=== PATIENT | male | born 1955 | race Hispanic/Latino ===

== ENCOUNTER 2018-11-21 13:52 | Inpatient (IN) | payer BC ==
[2018-11-21 19:28] VITALS: BMI 28.8
[2018-11-21] MEDS: Insulin Lispro (humaLOG) 100 Units/ml Inj SC SCH (21:40)
[2018-11-22 06:48] LABS: HEMOGLOBIN 13.4 g/dL (12.0-18.0); MEAN CELL VOLUME 83.6 fl (80.0-94.0); MEAN CORPUSCULAR HEMOGLOBIN 28.3 pg (27.0-31.0); MEAN CORPUSCULAR HGB CONC 33.9 g/dL (33.0-37.0); RBC 4.73 Mil/uL (4.40-5.90); RED CELL DISTRIBUTION WIDTH 12.9 % (11.5-14.5); WHITE BLOOD COUNT 7.3 K/uL (4.8-10.8)
[2018-11-22 06:56] LABS: BLOOD UREA NITROGEN 16 mg/dl (9-20); CALCIUM 8.8 mg/dL (8.4-10.2); GFR NON-AFRICAN AMERICAN > 60
[2018-11-22] MEDS: Insulin Lispro (humaLOG) 100 Units/ml Inj SC SCH ×4 (07:02→22:13)
[2018-11-22] MEDS: Pantoprazole 40 mg EC Tab PO SCH (09:06)
[2018-11-22] MEDS: Enoxaparin 40 mg Syringe SC SCH (12:01)
--- NOTE | 2018-11-22 12:19 | PCM.PSYTMC ---
Acute Rehab Team Conference - - Vital Signs: Vital Signs (Last 8 Hours): Vital Signs 11/22/18 11/22/18 11/22/18 08:40 09:06 09:23 Temperature 97.7 F Pulse Rate 72 72 77 Respiratory 20 Rate Blood Pressure 127/75 127/75 O2 Sat by Pulse 97 99 Oximetry 11/22/18 10:43 Temperature 97.7 F Pulse Rate 72 Respiratory 20 Rate Blood Pressure 127/75 O2 Sat by Pulse Oximetry Pain: 0 - Precautions: Precautions: Fall Prevention - Medications/Other Issues: Comment: -visual field loss. -disoriented x3. -Bed and seatbelt alarm - Consults: Comment: -Dr. Hedrick - Skin: Incision Site: n/a - Toileting: Toileting: Minimal Assistance - Bladder Management: Bladder Pattern: Normal Voiding Method: Toilet, Urinal Bladder Management: Minimal Assistance - Transfers: Transfers: Contact Guard - ADL's: ADL's: Moderate Assistance - Pain Management: Other Intervention:: n/a - Patient/Family Teaching: Other Intervention:: -Teach patient safety awareness and educate family about diagnosis and medication management. - Goals/Time Frame: Comment: Patient will stay safe and informed of diagnosis and medication before discharge or until next team conference. - Provider: Registered Nurse:: Katty Strauss Speech Therapy - Consult Information Patient on Program: Yes Medical Diagnosis: CVA Treatment Diagnosis: Mod-Severe Cognitive Communication Impairment - Assessment Problem Solving Impairment: Severe Memory Impairment: Severe - Plan Assessment: Pt presents with a mod-severe cognitive communication impairment with deficits in the areas of orientation, immediate and delayed recall, problem solving, safety awareness, and sustained attention. Suspected visual deficits noted which impacted performance at times - recommend follow up with OT re: visual deficits. Pt would benefit from skilled ST services for improved cognition. Plan: Continue Speech/Language Therapy Frequency: 3-5 times per week Duration: 1 week Goals/Timeframe: Please refer to IE dated 11/22/18 for complete goals/POC Recommendations: ST 3-5x per week - Provider Therapist: Taylor Manrique License Number: [id number] Nutrition - Current Diet Current Diet/Supplement/Feedings: Moderate consistent CHO 2 gram Na diet - Appetite Percent Meal Consumed: 50-74% - Assessment/Goals/Time Frame Assessments/Goals/Time Frame: To follow as per nutrition protocol - Provider Provider: Krystyna Arteaga Case Management - Psychosocial Assessment Support Systems: Indy Boland ([facility])- [phone] Psychological Interventions/Needs: Patient is alert with intermittent confusion and forgetfulness Discharge Concerns: Patient will likely require 24 hour supervision upon discharge 2/2 cognitive deficits. Patient/Family Meeting: CM met with patient and rehab team and discussion held via certified [place]ian speaking health editor Arleth Escobar. Intervention/Goal/Outcome: 1. Goal: Supervision overall? 2. Plan: Home with 24 hour supervision vs ROBBY pending progress and family support. 3. DME needs. 4. continued emotional support. 5. f/u appts. 6. continued stay auth, LAD: 11/27. 7. patient to be reteamed next week for most appropriate discharge date and plan. - Discharge Plan Discharge Plan: Home with services - Provider Provider: Liu Langston License Number: [id number] Rehabilitation Plan - Treatment Plan Treatment Plan: Physical Therapy, Occupational Therapy, Speech, Dietary, Patient/Family Education - Recommendation Recommendation: Physical Therapy, Occupational Therapy, Speech, Dietary, Patient/Family Education - Discharge Plan Discharge to: Home
--- NOTE | 2018-11-22 16:58 | PCM.OPOC ---
Physiatry Overall Plan of Care - Overall Plan of Care Estimated Length of Stay in Weeks: 3 Rehab Impairment: Mobility, Gait, Cognition, Speech, Balance, Coordination Etiologic Diagnosis: Cerebrovascular Accident Rehab/Medical Prognosis: Fair - Anticipated Interventions Physical Therapy:: Yes (1 to 1.5 hours a day5 x a week for 3 weeks) Occupational Therapy:: Yes (1 hour a day5x a week for 3 weeks) Speech Therapy:: Yes (1 hour a day 5xaweek for 3 weeks) Recreational Therapy:: Yes - Therapy Goals Bed Mobility: Independent Ambulation: Supervision Functional Positional Changes:: Independent Other Therapy Goals:: IMPAIREMNENT CODE 01.2 - Functional Outcomes Functional Outcomes: FAIR. FUNCTIONAL STATUS> patient used to independent in all activities lives with spouse, NOW needs assistance in all phases of ADLS, TRANSFERS and GAIT - Discharge Plan Identification of Barriers to Discharge: Cognition Discharge Destination: Home
--- NOTE | 2018-11-22 17:03 | CP.PCM.CON ---
History of Present Illness - History of Present Illness History of Present Illness: 63 year old male admitted to acute rehab with diagnosis of CVA, status post dizziness and unsteady gait. PMH of HTN, DM Review of Systems - Musculoskeletal Musculoskeletal: Abnormal Gait, Muscle Weakness - Neurological Neurological: Abnormal Gait, Lack of Coordination Past Patient History - Past Medical History & Family History Past Medical History?: Yes - Past Social History Smoking Status: Light Smoker < 10 Cigarettes Daily - CARDIAC Hx Hypertension: Yes - PULMONARY Hx Respiratory Disorders: No - NEUROLOGICAL HX Cerebrovascular Accident: Yes (11/17/18) - HEENT Hx HEENT Problems: Yes Other/Comment: Impaired peripheral vision - RENAL Hx Chronic Kidney Disease: No - ENDOCRINE/METABOLIC Hx Diabetes Mellitus Type 2: Yes - HEMATOLOGICAL/ONCOLOGICAL Hx Blood Disorders: No Hx AIDS: No Hx Human Immunodeficiency Virus (HIV): No - INTEGUMENTARY Hx Dermatological Problems: No - MUSCULOSKELETAL/RHEUMATOLOGICAL Hx Falls: No Hx Unsteady Gait: Yes - GASTROINTESTINAL Hx Gastrointestinal Disorders: No - GENITOURINARY/GYNECOLOGICAL Hx Genitourinary Disorders: No - PSYCHIATRIC Hx Psychophysiologic Disorder: No Hx Substance Use: No - SURGICAL HISTORY Hx Surgeries: No - ANESTHESIA Hx Anesthesia: No Hx Anesthesia Reactions: No Meds Allergies/Adverse Reactions: Allergies Allergy/AdvReac Type Severity Reaction Status Date / Time No Known Allergies Allergy Verified 11/21/18 14:34 - Medications Medications: Current Medications Aspirin (Aspirin Chewable) 81 mg PO DAILY [facility] Last Admin: 11/22/18 09:06 Dose: 81 mg Atorvastatin Calcium (Lipitor) 40 mg PO HS [facility] Last Admin: 11/21/18 21:39 Dose: 40 mg Enoxaparin Sodium (Lovenox) 40 mg SC DAILY [facility]; Protocol Last Admin: 11/22/18 12:01 Dose: 40 mg Folic Acid (Folic Acid) 1 mg PO DAILY [facility] Last Admin: 11/22/18 09:06 Dose: 1 mg Insulin Human Lispro (Humalog) 0 units SC [facility]; Protocol Last Admin: 11/22/18 16:35 Dose: 2 unit Lisinopril (Zestril) 10 mg PO DAILY [facility] Last Admin: 11/22/18 09:06 Dose: 10 mg Pantoprazole Sodium (Protonix Ec Tab) 40 mg PO DAILY [facility] Last Admin: 11/22/18 09:06 Dose: 40 mg Thiamine HCl (Vitamin B1 Tab) 100 mg PO DAILY [facility] Last Admin: 11/22/18 09:06 Dose: 100 mg Physical Exam - Constitutional Appears: Well - Head Exam Head Exam: ATRAUMATIC, NORMAL INSPECTION, NORMOCEPHALIC - Eye Exam Eye Exam: EOMI, Normal appearance Pupil Exam: NORMAL ACCOMODATION, PERRL - ENT Exam ENT Exam: Mucous Membranes Moist, Normal Exam Additional comments: problems with neglect and vision - Neck Exam Neck exam: Positive for: Normal Inspection - Respiratory Exam Respiratory Exam: Clear to Auscultation Bilateral, NORMAL BREATHING PATTERN - Cardiovascular Exam Cardiovascular Exam: REGULAR RHYTHM - GI/Abdominal Exam GI & Abdominal Exam: Normal Bowel Sounds - Rectal Exam Rectal Exam: NORMAL INSPECTION - Exam External exam: NORMAL EXTERNAL EXAM - Extremities Exam Extremities exam: Positive for: normal inspection Additional comments: right side weaker than left side - Back Exam Back exam: NORMAL INSPECTION - Neurological Exam Neurological exam: Alert - Psychiatric Exam Psychiatric exam: Normal Affect - Skin Skin Exam: Normal Color Results - Vital Signs Recent Vital Signs: Last Vital Signs Temp 97.7 F 11/22/18 10:43 Pulse 72 11/22/18 10:43 Resp 20 11/22/18 10:43 BP 127/75 11/22/18 10:43 Pulse Ox 99 11/22/18 09:23 - Labs Result Diagrams: 11/22/18 05:25 11/22/18 05:25 Labs: Laboratory Results - last 24 hr 11/21/18 11/22/18 11/22/18 20:51 05:25 05:25 WBC 7.3 RBC 4.73 Hgb 13.4 Hct 39.5 MCV 83.6 MCH 28.3 MCHC 33.9 RDW 12.9 Plt Count 162 Sodium 136 Potassium 4.1 Chloride 103 Carbon Dioxide 25 Anion Gap 12 BUN 16 Creatinine 0.7 L Est GFR ( Amer) > 60 Est GFR (Non-Af Amer) > 60 POC Glucose (mg/dL) 178 H Random Glucose 224 H Calcium 8.8 11/22/18 11/22/18 11/22/18 05:31 11:43 15:49 WBC RBC Hgb Hct MCV MCH MCHC RDW Plt Count Sodium Potassium Chloride Carbon Dioxide Anion Gap BUN Creatinine Est GFR ( Amer) Est GFR (Non-Af Amer) POC Glucose (mg/dL) 160 H 263 H 205 H Random Glucose Calcium Assessment & Plan (1) CVA (cerebral vascular accident) Assessment and Plan: also history of DM< HTN, plan for physical, occuptional , rec and speech therapy. IMpairment code of 01.2 and 163.9 FUNCTIONAL STATUS patient used to be independent in all activities, lives with spouse but now needs asisstance in all Adls, transfers and gait . Overall plan written for patient Status: Acute
[2018-11-23] MEDS: Insulin Lispro (humaLOG) 100 Units/ml Inj SC SCH ×4 (08:28→21:22)
[2018-11-23] MEDS: Pantoprazole 40 mg EC Tab PO SCH (08:29)
[2018-11-23] MEDS: Enoxaparin 40 mg Syringe SC SCH (08:30)
[2018-11-24] MEDS: Insulin Lispro (humaLOG) 100 Units/ml Inj SC SCH ×4 (07:25→22:10)
[2018-11-24] MEDS: Pantoprazole 40 mg EC Tab PO SCH (08:13)
[2018-11-24] MEDS: Enoxaparin 40 mg Syringe SC SCH (08:14)
--- NOTE | 2018-11-24 12:30 | CP.PCM.PN ---
Subjective - Date & Time of Evaluation Date of Evaluation: 11/24/18 Time of Evaluation: 10:30 - Subjective Subjective: no acute neck or back pain, alert and friendly Objective - Vital Signs/Intake and Output Vital Signs (last 24 hours): Temp Pulse Resp BP Pulse Ox 98.1 F 70 19 145/69 97 11/24/18 08:07 11/24/18 08:13 11/24/18 08:07 11/24/18 08:13 11/24/18 08:07 - Medications Medications: Current Medications Aspirin (Aspirin Chewable) 81 mg PO DAILY [facility] Last Admin: 11/24/18 08:12 Dose: 81 mg Atorvastatin Calcium (Lipitor) 40 mg PO HS [facility] Last Admin: 11/23/18 21:15 Dose: 40 mg Enoxaparin Sodium (Lovenox) 40 mg SC DAILY [facility]; Protocol Last Admin: 11/24/18 08:14 Dose: 40 mg Folic Acid (Folic Acid) 1 mg PO DAILY [facility] Last Admin: 11/24/18 08:13 Dose: 1 mg Insulin Human Lispro (Humalog) 0 units SC [facility]; Protocol Last Admin: 11/24/18 11:58 Dose: 3 unit Lisinopril (Zestril) 10 mg PO DAILY [facility] Last Admin: 11/24/18 08:13 Dose: 10 mg Pantoprazole Sodium (Protonix Ec Tab) 40 mg PO DAILY [facility] Last Admin: 11/24/18 08:13 Dose: 40 mg Thiamine HCl (Vitamin B1 Tab) 100 mg PO DAILY [facility] Last Admin: 11/24/18 08:13 Dose: 100 mg - Labs Labs: 11/22/18 05:25 11/22/18 05:25 - Constitutional Appears: Well - Head Exam Head Exam: ATRAUMATIC, NORMAL INSPECTION, NORMOCEPHALIC - Eye Exam Eye Exam: EOMI, Normal appearance, PERRL Pupil Exam: NORMAL ACCOMODATION, PERRL - ENT Exam ENT Exam: Mucous Membranes Moist, Normal Exam - Neck Exam Neck Exam: Full ROM, Normal Inspection - Respiratory Exam Respiratory Exam: Clear to Ausculation Bilateral, NORMAL BREATHING PATTERN - Cardiovascular Exam Cardiovascular Exam: REGULAR RHYTHM - GI/Abdominal Exam GI & Abdominal Exam: Soft, Normal Bowel Sounds - Rectal Exam Rectal Exam: NORMAL INSPECTION - Exam External exam: NORMAL EXTERNAL EXAM - Extremities Exam Extremities Exam: Full ROM, Normal Capillary Refill, Normal Inspection - Back Exam Back Exam: NORMAL INSPECTION - Neurological Exam Neurological Exam: Alert, Awake Neuro motor strength exam: Left Upper Extremity: 3, Right Upper Extremity: 3, Left Lower Extremity: 3, Right Lower Extremity: 3 - Psychiatric Exam Psychiatric exam: Normal Affect, Normal Mood Assessment and Plan (1) CVA (cerebral vascular accident) Assessment & Plan: plan for physical, occupational, rec therapy, speech therapy for range of motion, strengthing, transfers and gait training Status: Acute
--- NOTE | 2018-11-24 12:52 | CP.PCM.PN ---
Subjective - Date & Time of Evaluation Date of Evaluation: 11/23/18 Time of Evaluation: 15:00 - Subjective Subjective: no acute neck or back pain, generalized weakness Objective - Vital Signs/Intake and Output Vital Signs (last 24 hours): Temp Pulse Resp BP Pulse Ox 98.1 F 70 19 145/69 97 11/24/18 08:07 11/24/18 08:13 11/24/18 08:07 11/24/18 08:13 11/24/18 08:07 - Medications Medications: Current Medications Aspirin (Aspirin Chewable) 81 mg PO DAILY [facility] Last Admin: 11/24/18 08:12 Dose: 81 mg Atorvastatin Calcium (Lipitor) 40 mg PO HS [facility] Last Admin: 11/23/18 21:15 Dose: 40 mg Enoxaparin Sodium (Lovenox) 40 mg SC DAILY [facility]; Protocol Last Admin: 11/24/18 08:14 Dose: 40 mg Folic Acid (Folic Acid) 1 mg PO DAILY [facility] Last Admin: 11/24/18 08:13 Dose: 1 mg Insulin Human Lispro (Humalog) 0 units SC [facility]; Protocol Last Admin: 11/24/18 11:58 Dose: 3 unit Lisinopril (Zestril) 10 mg PO DAILY [facility] Last Admin: 11/24/18 08:13 Dose: 10 mg Pantoprazole Sodium (Protonix Ec Tab) 40 mg PO DAILY [facility] Last Admin: 11/24/18 08:13 Dose: 40 mg Thiamine HCl (Vitamin B1 Tab) 100 mg PO DAILY [facility] Last Admin: 11/24/18 08:13 Dose: 100 mg - Labs Labs: 11/22/18 05:25 11/22/18 05:25 - Constitutional Appears: Well - Head Exam Head Exam: ATRAUMATIC, NORMAL INSPECTION, NORMOCEPHALIC - Eye Exam Eye Exam: EOMI, Normal appearance, PERRL Pupil Exam: NORMAL ACCOMODATION - ENT Exam ENT Exam: Mucous Membranes Moist, Normal Exam - Neck Exam Neck Exam: Full ROM, Normal Inspection - Respiratory Exam Respiratory Exam: Clear to Ausculation Bilateral, NORMAL BREATHING PATTERN - Cardiovascular Exam Cardiovascular Exam: REGULAR RHYTHM - GI/Abdominal Exam GI & Abdominal Exam: Soft, Normal Bowel Sounds - Rectal Exam Rectal Exam: NORMAL INSPECTION - Exam External exam: NORMAL EXTERNAL EXAM - Extremities Exam Extremities Exam: Full ROM, Normal Capillary Refill, Normal Inspection - Back Exam Back Exam: NORMAL INSPECTION - Neurological Exam Neurological Exam: Alert, Awake Neuro motor strength exam: Left Upper Extremity: 3, Right Upper Extremity: 3, L eft Lower Extremity: 3, Right Lower Extremity: 3 - Psychiatric Exam Psychiatric exam: Normal Affect, Normal Mood - Skin Skin Exam: Dry, Intact Assessment and Plan (1) CVA (cerebral vascular accident) Assessment & Plan: Plan for physical, occupational rec and speech therapy for range of motion, strengthening, transfers and gait training, monitor labs and skin Status: Acute
--- NOTE | 2018-11-25 00:13 | CP.PCM.HP ---
History of Present Illness - History of Present Illness History of Present Illness: CC: Acute CVA, and Hemianopsia History of Present Illness A 63yoM with H/O DM II, Essential HTN and Chronic ETOH was [place] [facility] [place] with Hemianops[place]. MRI brain showed ACute Medium Size Infarct involving the anterior medial left occipital lobe. Moderate to large MCA Distribution.Patient also has Right Hemianopia. In the Hospital course, patient went to ETOH withdrawal. Present on Admission - Present on Admission Any Indicators Present on Admission: No Review of Systems - Review of Systems All systems: reviewed and no additional remarkable complaints except Past Patient History - Past Medical History & Family History Past Medical History?: Yes - Past Social History Smoking Status: Light Smoker < 10 Cigarettes Daily Alcohol: None Drugs: Denies - CARDIAC Hx Hypertension: Yes - PULMONARY Hx Respiratory Disorders: No - NEUROLOGICAL HX Cerebrovascular Accident: Yes (11/17/18) - HEENT Hx HEENT Problems: Yes Other/Comment: Impaired peripheral vision - RENAL Hx Chronic Kidney Disease: No - ENDOCRINE/METABOLIC Hx Diabetes Mellitus Type 2: Yes - HEMATOLOGICAL/ONCOLOGICAL Hx Blood Disorders: No Hx AIDS: No Hx Human Immunodeficiency Virus (HIV): No - INTEGUMENTARY Hx Dermatological Problems: No - MUSCULOSKELETAL/RHEUMATOLOGICAL Hx Falls: No Hx Unsteady Gait: Yes - GASTROINTESTINAL Hx Gastrointestinal Disorders: No - GENITOURINARY/GYNECOLOGICAL Hx Genitourinary Disorders: No - PSYCHIATRIC Hx Psychophysiologic Disorder: No Hx Substance Use: No - SURGICAL HISTORY Hx Surgeries: No - ANESTHESIA Hx Anesthesia: No Hx Anesthesia Reactions: No Meds Allergies/Adverse Reactions: Allergies Allergy/AdvReac Type Severity Reaction Status Date / Time No Known Allergies Allergy Verified 11/21/18 14:34 Physical Exam - Constitutional Appears: No Acute Distress, Chronically Ill - Head Exam Head Exam: ATRAUMATIC, NORMAL INSPECTION, NORMOCEPHALIC - Eye Exam Eye Exam: EOMI, Normal appearance, PERRL Pupil Exam: NORMAL ACCOMODATION, PERRL - ENT Exam ENT Exam: Mucous Membranes Moist, Normal Exam - Neck Exam Neck exam: Positive for: Normal Inspection - Respiratory Exam Respiratory Exam: Clear to Auscultation Bilateral, NORMAL BREATHING PATTERN - Cardiovascular Exam Cardiovascular Exam: REGULAR RHYTHM, +S1 - GI/Abdominal Exam GI & Abdominal Exam: Normal Bowel Sounds, Soft. absent: Tenderness - Extremities Exam Extremities exam: Positive for: normal inspection - Back Exam Back exam: NORMAL INSPECTION - Neurological Exam Neurological exam: Abnormal Gait, Altered, Motor Sensory Deficit - Psychiatric Exam Psychiatric exam: Normal Affect, Normal Mood - Skin Skin Exam: Dry, Intact, Normal Color, Warm Results - Vital Signs Recent Vital Signs: Last Vital Signs Temp 98.1 F 11/24/18 08:07 Pulse 81 11/24/18 14:41 Resp 19 11/24/18 08:07 BP 145/69 11/24/18 08:13 Pulse Ox 97 11/24/18 08:07 - Labs Result Diagrams: 11/28/18 05:35 11/28/18 05:35 Labs: Laboratory Results - last 24 hr 11/24/18 11/24/18 11/24/18 05:44 11:10 16:10 POC Glucose (mg/dL) 176 H 278 H 200 H Assessment & Plan (1) CVA (cerebral vascular accident) Status: Acute Priority: High (2) Hemianopia of right eye Status: Acute Priority: High (3) Diabetes mellitus Status: Acute Priority: Medium (4) Hypertension Status: Acute Priority: Low (5) Chronic alcohol abuse Status: Acute Priority: Low - Assessment and Plan (Free Text) Plan: C/w ASA/Lipitor Metformin Thiamine/Foic Acid Accu-check with Low coverage C/w Protonix Lovenox 40mg SQ daily Will need follow up
--- NOTE | 2018-11-25 00:14 | CP.PCM.PN ---
Subjective - Date & Time of Evaluation Date of Evaluation: 11/23/18 Objective - Vital Signs/Intake and Output Vital Signs (last 24 hours): Temp Pulse Resp BP Pulse Ox 98.1 F 81 19 145/69 97 11/24/18 08:07 11/24/18 14:41 11/24/18 08:07 11/24/18 08:13 11/24/18 08:07 - Medications Medications: Current Medications Aspirin (Aspirin Chewable) 81 mg PO DAILY [facility] Last Admin: 11/24/18 08:12 Dose: 81 mg Atorvastatin Calcium (Lipitor) 40 mg PO HS [facility] Last Admin: 11/24/18 22:07 Dose: 40 mg Enoxaparin Sodium (Lovenox) 40 mg SC DAILY [facility]; Protocol Last Admin: 11/24/18 08:14 Dose: 40 mg Folic Acid (Folic Acid) 1 mg PO DAILY [facility] Last Admin: 11/24/18 08:13 Dose: 1 mg Insulin Human Lispro (Humalog) 0 units SC [facility]; Protocol Last Admin: 11/24/18 22:10 Dose: Not Given Lisinopril (Zestril) 10 mg PO DAILY [facility] Last Admin: 11/24/18 08:13 Dose: 10 mg Pantoprazole Sodium (Protonix Ec Tab) 40 mg PO DAILY [facility] Last Admin: 11/24/18 08:13 Dose: 40 mg Thiamine HCl (Vitamin B1 Tab) 100 mg PO DAILY [facility] Last Admin: 11/24/18 08:13 Dose: 100 mg - Labs Labs: 11/22/18 05:25 11/22/18 05:25
--- NOTE | 2018-11-25 00:15 | CP.PCM.PN ---
Subjective - Date & Time of Evaluation Date of Evaluation: 11/24/18 Objective - Vital Signs/Intake and Output Vital Signs (last 24 hours): Temp Pulse Resp BP Pulse Ox 98.1 F 81 19 145/69 97 11/24/18 08:07 11/24/18 14:41 11/24/18 08:07 11/24/18 08:13 11/24/18 08:07 - Medications Medications: Current Medications Aspirin (Aspirin Chewable) 81 mg PO DAILY [facility] Last Admin: 11/24/18 08:12 Dose: 81 mg Atorvastatin Calcium (Lipitor) 40 mg PO HS [facility] Last Admin: 11/24/18 22:07 Dose: 40 mg Enoxaparin Sodium (Lovenox) 40 mg SC DAILY [facility]; Protocol Last Admin: 11/24/18 08:14 Dose: 40 mg Folic Acid (Folic Acid) 1 mg PO DAILY [facility] Last Admin: 11/24/18 08:13 Dose: 1 mg Insulin Human Lispro (Humalog) 0 units SC [facility]; Protocol Last Admin: 11/24/18 22:10 Dose: Not Given Lisinopril (Zestril) 10 mg PO DAILY [facility] Last Admin: 11/24/18 08:13 Dose: 10 mg Pantoprazole Sodium (Protonix Ec Tab) 40 mg PO DAILY [facility] Last Admin: 11/24/18 08:13 Dose: 40 mg Thiamine HCl (Vitamin B1 Tab) 100 mg PO DAILY [facility] Last Admin: 11/24/18 08:13 Dose: 100 mg - Labs Labs: 11/22/18 05:25 11/22/18 05:25
[2018-11-25] MEDS: Insulin Lispro (humaLOG) 100 Units/ml Inj SC SCH ×4 (07:44→21:00)
[2018-11-25] MEDS: Enoxaparin 40 mg Syringe SC SCH (08:09)
[2018-11-25 08:10] LABS: BLOOD UREA NITROGEN 16 mg/dl (9-20); GFR NON-AFRICAN AMERICAN > 60
[2018-11-25] MEDS: Pantoprazole 40 mg EC Tab PO SCH (08:10)
[2018-11-25 08:11] LABS: HEMOGLOBIN 13.2 g/dL (12.0-18.0); MEAN CELL VOLUME 82.2 fl (80.0-94.0); MEAN CORPUSCULAR HEMOGLOBIN 28.3 pg (27.0-31.0); MEAN CORPUSCULAR HGB CONC 34.4 g/dL (33.0-37.0); RBC 4.66 Mil/uL (4.40-5.90); RED CELL DISTRIBUTION WIDTH 12.6 % (11.5-14.5)
[2018-11-26] MEDS: Insulin Lispro (humaLOG) 100 Units/ml Inj SC SCH ×4 (06:51→21:24)
[2018-11-26] MEDS: Pantoprazole 40 mg EC Tab PO SCH (08:21)
[2018-11-27] MEDS: Insulin Lispro (humaLOG) 100 Units/ml Inj SC SCH ×4 (06:54→21:27)
[2018-11-27] MEDS: Pantoprazole 40 mg EC Tab PO SCH (08:02)
[2018-11-27] MEDS: Enoxaparin 40 mg Syringe SC SCH (16:56)
[2018-11-28 06:40] LABS: HEMOGLOBIN 12.8 g/dL (12.0-18.0); MEAN CELL VOLUME 82.7 fl (80.0-94.0); MEAN CORPUSCULAR HEMOGLOBIN 28.2 pg (27.0-31.0); MEAN CORPUSCULAR HGB CONC 34.1 g/dL (33.0-37.0); RBC 4.53 Mil/uL (4.40-5.90); RED CELL DISTRIBUTION WIDTH 12.8 % (11.5-14.5); WHITE BLOOD COUNT 8.9 K/uL (4.8-10.8)
[2018-11-28 07:25] LABS: BLOOD UREA NITROGEN 20 mg/dl (9-20); CALCIUM 9.1 mg/dL (8.4-10.2); GFR NON-AFRICAN AMERICAN > 60
[2018-11-28] MEDS: Insulin Lispro (humaLOG) 100 Units/ml Inj SC SCH ×4 (07:59→22:00)
[2018-11-28] MEDS: Enoxaparin 40 mg Syringe SC SCH (08:43)
[2018-11-28] MEDS: Pantoprazole 40 mg EC Tab PO SCH (08:43)
[2018-11-28] MEDS ORDERED: Enoxaparin 40 mg Syringe SC SCH (09:00)
--- NOTE | 2018-11-28 11:55 | CP.PCM.PN ---
Subjective - Date & Time of Evaluation Date of Evaluation: 11/25/18 Objective - Vital Signs/Intake and Output Vital Signs (last 24 hours): Temp Pulse Resp BP Pulse Ox 97.7 F 63 18 145/67 98 11/28/18 07:43 11/28/18 08:43 11/28/18 07:43 11/28/18 08:43 11/28/18 07:43 - Medications Medications: Current Medications Aspirin (Aspirin Chewable) 81 mg PO DAILY [facility] Last Admin: 11/28/18 08:42 Dose: 81 mg Atorvastatin Calcium (Lipitor) 40 mg PO HS [facility] Last Admin: 11/27/18 21:26 Dose: 40 mg Enoxaparin Sodium (Lovenox) 40 mg SC DAILY [facility]; Protocol Last Admin: 11/28/18 08:43 Dose: 40 mg Folic Acid (Folic Acid) 1 mg PO DAILY [facility] Last Admin: 11/28/18 08:42 Dose: 1 mg Insulin Human Lispro (Humalog) [address] [facility]; Protocol Last Admin: 11/28/18 07:59 Dose: 1 unit Lisinopril (Zestril) 10 mg PO DAILY [facility] Last Admin: 11/28/18 08:43 Dose: 10 mg Metformin HCl (Glucophage) 500 mg PO BIDWM [facility] Last Admin: 11/28/18 08:42 Dose: 500 mg Pantoprazole Sodium (Protonix Ec Tab) 40 mg PO DAILY [facility] Last Admin: 11/28/18 08:43 Dose: 40 mg Thiamine HCl (Vitamin B1 Tab) 100 mg PO DAILY [facility] Last Admin: 11/28/18 08:43 Dose: 100 mg - Labs Labs: 11/28/18 05:35 11/28/18 05:35
--- NOTE | 2018-11-28 11:56 | CP.PCM.PN ---
Subjective - Date & Time of Evaluation Date of Evaluation: 11/26/18 Objective - Vital Signs/Intake and Output Vital Signs (last 24 hours): Temp Pulse Resp BP Pulse Ox 97.7 F 63 18 145/67 98 11/28/18 07:43 11/28/18 08:43 11/28/18 07:43 11/28/18 08:43 11/28/18 07:43 - Medications Medications: Current Medications Aspirin (Aspirin Chewable) 81 mg PO DAILY [facility] Last Admin: 11/28/18 08:42 Dose: 81 mg Atorvastatin Calcium (Lipitor) 40 mg PO HS [facility] Last Admin: 11/27/18 21:26 Dose: 40 mg Enoxaparin Sodium (Lovenox) 40 mg SC DAILY [facility]; Protocol Last Admin: 11/28/18 08:43 Dose: 40 mg Folic Acid (Folic Acid) 1 mg PO DAILY [facility] Last Admin: 11/28/18 08:42 Dose: 1 mg Insulin Human Lispro (Humalog) 0 units SC [facility]; Protocol Last Admin: 11/28/18 07:59 Dose: 1 unit Lisinopril (Zestril) 10 mg PO DAILY [facility] Last Admin: 11/28/18 08:43 Dose: 10 mg Metformin HCl (Glucophage) 500 mg PO BIDWM [facility] Last Admin: 11/28/18 08:42 Dose: 500 mg Pantoprazole Sodium (Protonix Ec Tab) 40 mg PO DAILY [facility] Last Admin: 11/28/18 08:43 Dose: 40 mg Thiamine HCl (Vitamin B1 Tab) 100 mg PO DAILY [facility] Last Admin: 11/28/18 08:43 Dose: 100 mg - Labs Labs: 11/28/18 05:35 11/28/18 05:35
--- NOTE | 2018-11-28 11:57 | CP.PCM.PN ---
Subjective - Date & Time of Evaluation Date of Evaluation: 11/27/18 Objective - Vital Signs/Intake and Output Vital Signs (last 24 hours): Temp Pulse Resp BP Pulse Ox 97.7 F 63 18 145/67 98 11/28/18 07:43 11/28/18 08:43 11/28/18 07:43 11/28/18 08:43 11/28/18 07:43 - Medications Medications: Current Medications Aspirin (Aspirin Chewable) 81 mg PO DAILY [facility] Last Admin: 11/28/18 08:42 Dose: 81 mg Atorvastatin Calcium (Lipitor) 40 mg PO HS [facility] Last Admin: 11/27/18 21:26 Dose: 40 mg Enoxaparin Sodium (Lovenox) 40 mg SC DAILY [facility]; Protocol Last Admin: 11/28/18 08:43 Dose: 40 mg Folic Acid (Folic Acid) 1 mg PO DAILY [facility] Last Admin: 11/28/18 08:42 Dose: 1 mg Insulin Human Lispro (Humalog) 0 units SC [facility]; Protocol Last Admin: 11/28/18 07:59 Dose: 1 unit Lisinopril (Zestril) 10 mg PO DAILY [facility] Last Admin: 11/28/18 08:43 Dose: 10 mg Metformin HCl (Glucophage) 500 mg PO BIDWM [facility] Last Admin: 11/28/18 08:42 Dose: 500 mg Pantoprazole Sodium (Protonix Ec Tab) 40 mg PO DAILY [facility] Last Admin: 11/28/18 08:43 Dose: 40 mg Thiamine HCl (Vitamin B1 Tab) 100 mg PO DAILY [facility] Last Admin: 11/28/18 08:43 Dose: 100 mg - Labs Labs: 11/28/18 05:35 11/28/18 05:35
--- NOTE | 2018-11-28 22:15 | CP.PCM.PN ---
Subjective - Date & Time of Evaluation Date of Evaluation: 11/28/18 Time of Evaluation: 12:00 - Subjective Subjective: no acute complaints at present Objective - Vital Signs/Intake and Output Vital Signs (last 24 hours): Temp Pulse Resp BP Pulse Ox 97.7 F 63 18 145/67 98 11/28/18 07:43 11/28/18 08:43 11/28/18 07:43 11/28/18 08:43 11/28/18 07:43 - Medications Medications: Current Medications Aspirin (Aspirin Chewable) 81 mg PO DAILY [facility] Last Admin: 11/28/18 08:42 Dose: 81 mg Atorvastatin Calcium (Lipitor) 40 mg PO HS [facility] Last Admin: 11/28/18 21:22 Dose: 40 mg Enoxaparin Sodium (Lovenox) 40 mg SC DAILY [facility]; Protocol Last Admin: 11/28/18 08:43 Dose: 40 mg Folic Acid (Folic Acid) 1 mg PO DAILY [facility] Last Admin: 11/28/18 08:42 Dose: 1 mg Insulin Human Lispro (Humalog) 0 units SC [facility]; Protocol Last Admin: 11/28/18 17:19 Dose: Not Given Lisinopril (Zestril) 10 mg PO DAILY [facility] Last Admin: 11/28/18 08:43 Dose: 10 mg Metformin HCl (Glucophage) 500 mg PO BIDWM [facility] Last Admin: 11/28/18 17:18 Dose: 500 mg Pantoprazole Sodium (Protonix Ec Tab) 40 mg PO DAILY [facility] Last Admin: 11/28/18 08:43 Dose: 40 mg Thiamine HCl (Vitamin B1 Tab) 100 mg PO DAILY [facility] Last Admin: 11/28/18 08:43 Dose: 100 mg - Labs Labs: 11/28/18 05:35 11/28/18 05:35 - Constitutional Appears: Well - Head Exam Head Exam: ATRAUMATIC, NORMAL INSPECTION, NORMOCEPHALIC - Eye Exam Eye Exam: EOMI, Normal appearance Pupil Exam: NORMAL ACCOMODATION, PERRL - ENT Exam ENT Exam: Mucous Membranes Moist, Normal Exam - Neck Exam Neck Exam: Full ROM - Respiratory Exam Respiratory Exam: Clear to Ausculation Bilateral, NORMAL BREATHING PATTERN - Cardiovascular Exam Cardiovascular Exam: REGULAR RHYTHM - GI/Abdominal Exam GI & Abdominal Exam: Soft, Normal Bowel Sounds - Rectal Exam Rectal Exam: NORMAL INSPECTION - Exam External exam: NORMAL EXTERNAL EXAM - Extremities Exam Extremities Exam: Full ROM, Normal Capillary Refill - Back Exam Back Exam: NORMAL INSPECTION - Neurological Exam Neurological Exam: Alert Neuro motor strength exam: Left Upper Extremity: 3, Right Upper Extremity: 3, Left Lower Extremity: 3, Right Lower Extremity: 3 - Psychiatric Exam Psychiatric exam: Normal Affect, Normal Mood - Skin Skin Exam: Dry, Normal Color Assessment and Plan (1) CVA (cerebral vascular accident) Assessment & Plan: plan for physical, occupational and rec therapy, for team conference Status: Acute
--- NOTE | 2018-11-29 00:04 | CP.PCM.PN ---
Subjective - Date & Time of Evaluation Date of Evaluation: 11/28/18 Objective - Vital Signs/Intake and Output Vital Signs (last 24 hours): Temp Pulse Resp BP Pulse Ox 97.7 F 63 18 145/67 98 11/28/18 07:43 11/28/18 08:43 11/28/18 07:43 11/28/18 08:43 11/28/18 07:43 - Medications Medications: Current Medications Aspirin (Aspirin Chewable) 81 mg PO DAILY [facility] Last Admin: 11/28/18 08:42 Dose: 81 mg Atorvastatin Calcium (Lipitor) 40 mg PO HS [facility] Last Admin: 11/28/18 21:22 Dose: 40 mg Enoxaparin Sodium (Lovenox) 40 mg SC DAILY [facility]; Protocol Last Admin: 11/28/18 08:43 Dose: 40 mg Folic Acid (Folic Acid) 1 mg PO DAILY [facility] Last Admin: 11/28/18 08:42 Dose: 1 mg Insulin Human Lispro (Humalog) 0 units SC [facility]; Protocol Last Admin: 11/28/18 22:00 Dose: Not Given Lisinopril (Zestril) 10 mg PO DAILY [facility] Last Admin: 11/28/18 08:43 Dose: 10 mg Metformin HCl (Glucophage) 500 mg PO BIDWM [facility] Last Admin: 11/28/18 17:18 Dose: 500 mg Pantoprazole Sodium (Protonix Ec Tab) 40 mg PO DAILY [facility] Last Admin: 11/28/18 08:43 Dose: 40 mg Thiamine HCl (Vitamin B1 Tab) 100 mg PO DAILY [facility] Last Admin: 11/28/18 08:43 Dose: 100 mg - Labs Labs: 11/28/18 05:35 11/28/18 05:35
[2018-11-29] MEDS: Insulin Lispro (humaLOG) 100 Units/ml Inj SC SCH ×4 (07:35→21:23)
[2018-11-29] MEDS: Pantoprazole 40 mg EC Tab PO SCH (08:05)
[2018-11-29] MEDS: Enoxaparin 40 mg Syringe SC SCH (08:05)
--- NOTE | 2018-11-29 12:22 | PCM.PSYTMC ---
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 Liseth Crocker - Skin: Incision Site: N/A Incision Line Treatment: skin intact - Toileting: Toileting: Contact Guard - Bladder Management: Bladder Pattern: Normal Voiding Method: Toilet, Urinal Bladder Management: Contact Guard - Transfers: Transfers: Contact Guard - ADL's: ADL's: Contact Guard - Pain Management: Other Intervention:: pt denies pain - Patient/Family Teaching: Other Intervention:: medications, DM/ DM diet , safety, cognition - Goals/Time Frame: Comment: to be able to be discharged home with family care. - Provider: Registered Nurse:: Jazlyn Jordan Physical Therapy - Bed Mobility Bed Mobility: Supervision, Verbal Cues - Transfers Wheelchair to Mat: Supervision, Verbal Cues, Contact Guard Sit to Stand: Supervision, Verbal Cues Comment: no device - Ambulation Level of Assistance: Supervision, Verbal Cues, Contact Guard Distance (ft.): 200 Assistive Devices: N/A Orthoses: n/a Comment: 200 feet, no device, level surfaces. -VCs to improve reciprocal arm swing, patient then uses BUE flexion/extension at the same time and requires tactile cues and frequent reminders to utilize reciprocal arm swing. -requires intermittent CG due to collisions with obstacles 2' to impaired vision with vision changes due to stroke (R homonymous hemionopsia as well as R superior/inferior visual field loss). -trials with recurrent cues to maintain head turns throughout gait to try and reduced collisions, improve negotiation of obstacles and maintain as best as he can in the center of the hallway - Stair Negotiation Stairs: Level of Assistance: Supervision, Verbal Cues, Contact Guard Stairs: Assistive Devices: Left Handrail, Right Handrail Comment: 1 flight 8 inch steps with R rail on ascent and L rail on descent. - step to pattern with VCs with CS/CG. -requires cues to maintain slow speed and verbal cues to know when the steps are at the bottom. -increased assistance on descent due to difficulty with vision and difficulty of visual challenges with steps - Standing Balance Static Stand: Supervision - Pain Pain (assessed during therapy session): 0 Comment: denies - Insight/Carryover Insight/Carryover: Poor - Patient/Family Education Comment: -able to demonstrate reciprocally techniques right away but has poor carry-over with techniques to improve safety. -safety, therapy schedule, therapy goals, use of head turns, mobility, POC, stroke recovery - Assessment/Plan Assessment: Mr. Boland demonstrates improving balance and safety with mobility. Patient's largest barrier is due to both cognitive deficits as well as visual changes following CVA. Due to vision loss, patient has impaired ability to negotiate safely his environment and is at high risk of collisions. Patient's impaired memory impacts his ability to safely follow and adhere to compensatory strategies to improve safety. Patient responds well to cues but requires verbal and at times tactile cues as well as frequent repetition of cues to improve safety with tasks. PT recommends home discharge with 24 hour supervision of family to ensure safety for the patient in his environment. PT recommends home care. - Goals Timeframe: 7 days Goals: -I with bed/mat mobility including rolling and supine to/from sit. -mod I with transfers without device including stand pivot and sit to/from stand. - mod I to ambulate 50 feet without device (houeshold independent). -S to ambulate 500 feet without device. -S to negotiate 2 flights of steps with single rail - Provider Physical Therapist:: Nilda Hoffman License Number:: [id number] Speech Therapy - Consult Information Patient on Program: Yes Medical Diagnosis: CVA Treatment Diagnosis: Mild-Moderate Cognitive Communication Disorder - Assessment Problem Solving Impairment: Moderate Memory Impairment: Moderate - Plan Assessment: Mr Boland presents with 1) Moderate cognitive communication impairment characterized by deficits in the areas of orientation, immediate recall, biographical recall, and basic attention. Barriers to learning include visual deficits and cognition. Plan: Continue Speech/Language Therapy Frequency: 3-5 times per week Duration: 1 week Goals/Timeframe: Please see progress note updated 11/27 for updated goals and POC Recommendations: Continue ST services to improve safety, orientation and independence with ADLs. - Provider Therapist: Taylor Manrique License Number: [id number] Recreational Therapy - Participation Participation: Participates in Individual and/or Group Sessions - Attendance Attendance: 3-5 times per week - Activities Leisure Activities: Television - Socialization Level of Socialization: Initiates/interacts freely with care givers and peer - Diversional Time Diversional Time: television - Assessment Assessment/Plan: Pt is agreeable to participate in recreation therapy sessions. Pt's mood is stable-positive and cooperative throughout all sessions. Pt is oriented to leisure tasks such as 5 second rule, modified tate card task, and attempted to demonstrate to pt spot-it matching task and tapple. Pt has participated in dominoes and recall task rules. However, pt's visual deficits and cognitive deficits are barriers to participation and require max verbal cues for visual attention to the R side and midline. Pt presents with short-term recall deficits and impaired safety awareness. Pt will continue to benefit from participating in recreation therapy sessions throughout stay on unit. Pt attended stroke education group and provided with post-stroke recovery information and nutrition information. Pt's informed as well. Problems Currently Limiting Participation: decrease leisure awareness level, impaired problem solving, visual deficits (R side inattention), disorientation Goals and Time Frame: Pt will tolerate participating in at least 30 minutes of leisure task and recall task rules requiring min verbal cues throughout session by date of discharge. - Provider Therapist: Linda Field Nutrition - Current Diet Current Diet/Supplement/Feedings: Moderate consistent CHO 2 gram Na diet - Appetite Percent Meal Consumed: 75-100% - Assessment/Goals/Time Frame Assessments/Goals/Time Frame: Pt at moderate nutritional risk. goalS: 1. Pt to consume 75-100% of meals. 2. Blood glucoses to be between 70-180 mg/dl. Follow-up due on 11/29/2018 - Provider Provider: Krystyna Arteaga Case Management - Psychosocial Assessment Support Systems: Indy Boland () - [phone] Psychological Interventions/Needs: Patient is AAO with cognitive defecits and visual impairments. Discharge Concerns: Patient lives with in an apartment with elevator access. 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 Patient/Family Meeting: CM met with patient and rehab team. Intervention/Goal/Outcome: 1. Goal: 24hr supervision 2. Plan: home with VNS and family support 3. complete POA forms with - mobile notary scheduled to assist with documents on 12/01 @ 10am 4. discuss with team what DME is needed and order accordingly 5. schedule f/u appts - Discharge Plan Discharge Plan: Home with services Home Services: [facility] - Provider Provider: Kaya Amos License Number: [id number] Rehabilitation Plan - Treatment Plan Treatment Plan: Physical Therapy, Occupational Therapy, Speech, Dietary, Patient/Family Education - Recommendation Recommendation: Physical Therapy, Occupational Therapy, Speech, Dietary, Patient/Family Education - Discharge Plan Discharge to: Home (DC 25)
--- NOTE | 2018-11-29 13:21 | CP.PCM.PN ---
Subjective - Date & Time of Evaluation Date of Evaluation: 11/25/18 Time of Evaluation: 13:00 - Subjective Subjective: no acute complaints at present Objective - Vital Signs/Intake and Output Vital Signs (last 24 hours): Temp Pulse Resp BP Pulse Ox 97.7 F 70 18 132/61 97 11/29/18 09:00 11/29/18 09:00 11/29/18 09:00 11/29/18 09:00 11/29/18 08:06 - Medications Medications: Current Medications Aspirin (Aspirin Chewable) 81 mg PO DAILY [facility] Last Admin: 11/29/18 08:05 Dose: 81 mg Atorvastatin Calcium (Lipitor) 40 mg PO HS [facility] Last Admin: 11/28/18 21:22 Dose: 40 mg Enoxaparin Sodium (Lovenox) 40 mg SC DAILY [facility]; Protocol Last Admin: 11/29/18 08:05 Dose: 40 mg Folic Acid (Folic Acid) 1 mg PO DAILY [facility] Last Admin: 11/29/18 08:05 Dose: 1 mg Insulin Human Lispro (Humalog) 0 units SC [facility]; Protocol Last Admin: 11/29/18 12:15 Dose: 2 unit Lisinopril (Zestril) 10 mg PO DAILY [facility] Last Admin: 11/29/18 08:06 Dose: 10 mg Metformin HCl (Glucophage) 500 mg PO BIDWM [facility] Last Admin: 11/29/18 08:05 Dose: 500 mg Pantoprazole Sodium (Protonix Ec Tab) 40 mg PO DAILY [facility] Last Admin: 11/29/18 08:05 Dose: 40 mg Thiamine HCl (Vitamin B1 Tab) 100 mg PO DAILY [facility] Last Admin: 11/29/18 08:06 Dose: 100 mg - Labs Labs: 11/28/18 05:35 11/28/18 05:35 - Constitutional Appears: Well - Head Exam Head Exam: ATRAUMATIC, NORMAL INSPECTION, NORMOCEPHALIC - Eye Exam Eye Exam: EOMI, Normal appearance, PERRL Pupil Exam: NORMAL ACCOMODATION, PERRL - ENT Exam ENT Exam: Mucous Membranes Moist, Normal Exam - Neck Exam Neck Exam: Full ROM, Normal Inspection - Respiratory Exam Respiratory Exam: Clear to Ausculation Bilateral, NORMAL BREATHING PATTERN - Cardiovascular Exam Cardiovascular Exam: REGULAR RHYTHM - GI/Abdominal Exam GI & Abdominal Exam: Soft, Normal Bowel Sounds - Rectal Exam Rectal Exam: NORMAL INSPECTION - Exam External exam: NORMAL EXTERNAL EXAM - Extremities Exam Extremities Exam: Full ROM, Normal Capillary Refill, Normal Inspection - Back Exam Back Exam: NORMAL INSPECTION - Neurological Exam Neurological Exam: Alert, Awake Neuro motor strength exam: Left Upper Extremity: 3, Right Upper Extremity: 3, Left Lower Extremity: 3, Right Lower Extremity: 3 - Psychiatric Exam Psychiatric exam: Normal Affect, Normal Mood - Skin Skin Exam: Dry, Intact Assessment and Plan (1) CVA (cerebral vascular accident) Assessment & Plan: plan for physical, occupational therapy rec st, monitor skin and labs Status: Acute
--- NOTE | 2018-11-29 13:25 | CP.PCM.PN ---
Subjective - Date & Time of Evaluation Date of Evaluation: 11/25/18 Time of Evaluation: 13:00 - Subjective Subjective: no acute complaints of pain Objective - Vital Signs/Intake and Output Vital Signs (last 24 hours): Temp Pulse Resp BP Pulse Ox 97.7 F 70 18 132/61 97 11/29/18 09:00 11/29/18 09:00 11/29/18 09:00 11/29/18 09:00 11/29/18 08:06 - Medications Medications: Current Medications Aspirin (Aspirin Chewable) 81 mg PO DAILY [facility] Last Admin: 11/29/18 08:05 Dose: 81 mg Atorvastatin Calcium (Lipitor) 40 mg PO HS [facility] Last Admin: 11/28/18 21:22 Dose: 40 mg Enoxaparin Sodium (Lovenox) 40 mg SC DAILY [facility]; Protocol Last Admin: 11/29/18 08:05 Dose: 40 mg Folic Acid (Folic Acid) 1 mg PO DAILY [facility] Last Admin: 11/29/18 08:05 Dose: 1 mg Insulin Human Lispro (Humalog) 0 units SC [facility]; Protocol Last Admin: 11/29/18 12:15 Dose: 2 unit Lisinopril (Zestril) 10 mg PO DAILY [facility] Last Admin: 11/29/18 08:06 Dose: 10 mg Metformin HCl (Glucophage) 500 mg PO BIDWM [facility] Last Admin: 11/29/18 08:05 Dose: 500 mg Pantoprazole Sodium (Protonix Ec Tab) 40 mg PO DAILY [facility] Last Admin: 11/29/18 08:05 Dose: 40 mg Thiamine HCl (Vitamin B1 Tab) 100 mg PO DAILY [facility] Last Admin: 11/29/18 08:06 Dose: 100 mg - Labs Labs: 11/28/18 05:35 11/28/18 05:35 - Constitutional Appears: Well - Head Exam Head Exam: ATRAUMATIC, NORMAL INSPECTION, NORMOCEPHALIC - Eye Exam Eye Exam: EOMI, Normal appearance, PERRL Pupil Exam: NORMAL ACCOMODATION - ENT Exam ENT Exam: Mucous Membranes Moist, Normal Exam - Neck Exam Neck Exam: Full ROM, Normal Inspection - Respiratory Exam Respiratory Exam: Clear to Ausculation Bilateral, NORMAL BREATHING PATTERN - Cardiovascular Exam Cardiovascular Exam: REGULAR RHYTHM - GI/Abdominal Exam GI & Abdominal Exam: Soft, Normal Bowel Sounds - Rectal Exam Rectal Exam: NORMAL INSPECTION - Exam External exam: NORMAL EXTERNAL EXAM - Extremities Exam Extremities Exam: Full ROM, Normal Capillary Refill - Back Exam Back Exam: NORMAL INSPECTION - Neurological Exam Neurological Exam: Alert, Awake Neuro motor strength exam: Left Upper Extremity: 3, Right Upper Extremity: 3, Left Lower Extremity: 3, Right Lower Extremity: 3 - Psychiatric Exam Psychiatric exam: Normal Affect, Normal Mood - Skin Skin Exam: Dry, Intact Assessment and Plan (1) CVA (cerebral vascular accident) Assessment & Plan: plan for team conference, physical, occupational, rec therapy monitor labs Status: Acute
[2018-11-30] MEDS: Insulin Lispro (humaLOG) 100 Units/ml Inj SC SCH ×4 (06:38→21:09)
[2018-11-30] MEDS: Enoxaparin 40 mg Syringe SC SCH (08:20)
[2018-11-30] MEDS: Pantoprazole 40 mg EC Tab PO SCH (08:22)
--- NOTE | 2018-11-30 18:07 | CP.PCM.PN ---
Subjective - Date & Time of Evaluation Date of Evaluation: 11/30/18 Time of Evaluation: 18:06 - Subjective Subjective: Dr Rae PMR coverage Doing well motivated ambulating 250' in therapies lungs CTA continue current care family is present in room Objective - Vital Signs/Intake and Output Vital Signs (last 24 hours): Temp Pulse Resp BP Pulse Ox 98.2 F 73 18 150/68 96 11/30/18 08:23 11/30/18 08:23 11/30/18 08:23 11/30/18 08:23 11/30/18 08:23 - Medications Medications: Current Medications Aspirin (Aspirin Chewable) 81 mg PO DAILY [facility] Last Admin: 11/30/18 08:22 Dose: 81 mg Atorvastatin Calcium (Lipitor) 40 mg PO HS [facility] Last Admin: 11/29/18 21:23 Dose: 40 mg Enoxaparin Sodium (Lovenox) 40 mg SC DAILY [facility]; Protocol Last Admin: 11/30/18 08:20 Dose: 40 mg Folic Acid (Folic Acid) 1 mg PO DAILY [facility] Last Admin: 11/30/18 08:21 Dose: 1 mg Insulin Human Lispro (Humalog) 0 units SC [facility]; Protocol Last Admin: 11/30/18 16:40 Dose: Not Given Lisinopril (Zestril) 10 mg PO DAILY [facility] Last Admin: 11/30/18 08:22 Dose: 10 mg Metformin HCl (Glucophage) 500 mg PO BIDWM [facility] Last Admin: 11/30/18 17:06 Dose: 500 mg Pantoprazole Sodium (Protonix Ec Tab) 40 mg PO DAILY [facility] Last Admin: 11/30/18 08:22 Dose: 40 mg Thiamine HCl (Vitamin B1 Tab) 100 mg PO DAILY [facility] Last Admin: 11/30/18 08:21 Dose: 100 mg - Labs Labs: 11/28/18 05:35 11/28/18 05:35
--- NOTE | 2018-11-30 23:19 | CP.PCM.PN ---
Subjective - Date & Time of Evaluation Date of Evaluation: 11/29/18 Objective - Vital Signs/Intake and Output Vital Signs (last 24 hours): Temp Pulse Resp BP Pulse Ox 98.6 F 73 20 133/65 96 11/30/18 20:30 11/30/18 20:30 11/30/18 20:30 11/30/18 20:30 11/30/18 20:30 - Medications Medications: Current Medications Aspirin (Aspirin Chewable) 81 mg PO DAILY [facility] Last Admin: 11/30/18 08:22 Dose: 81 mg Atorvastatin Calcium (Lipitor) 40 mg PO HS [facility] Last Admin: 11/30/18 21:08 Dose: 40 mg Enoxaparin Sodium (Lovenox) 40 mg SC DAILY [facility]; Protocol Last Admin: 11/30/18 08:20 Dose: 40 mg Folic Acid (Folic Acid) 1 mg PO DAILY [facility] Last Admin: 11/30/18 08:21 Dose: 1 mg Insulin Human Lispro (Humalog) 0 units SC [facility]; Protocol Last Admin: 11/30/18 21:09 Dose: Not Given Lisinopril (Zestril) 10 mg PO DAILY [facility] Last Admin: 11/30/18 08:22 Dose: 10 mg Metformin HCl (Glucophage) 1,000 mg PO BIDWM [facility] Pantoprazole Sodium (Protonix Ec Tab) 40 mg PO DAILY [facility] Last Admin: 11/30/18 08:22 Dose: 40 mg Thiamine HCl (Vitamin B1 Tab) 100 mg PO DAILY [facility] Last Admin: 11/30/18 08:21 Dose: 100 mg - Labs Labs: 11/28/18 05:35 11/28/18 05:35 Assessment and Plan (1) CVA (cerebral vascular accident) Status: Acute (2) Hemianopia of right eye Status: Acute (3) Diabetes mellitus Status: Acute (4) Hypertension Status: Acute (5) Chronic alcohol abuse Status: Acute
--- NOTE | 2018-11-30 23:20 | CP.PCM.PN ---
Subjective - Date & Time of Evaluation Date of Evaluation: 11/30/18 Objective - Vital Signs/Intake and Output Vital Signs (last 24 hours): Temp Pulse Resp BP Pulse Ox 98.6 F 73 20 133/65 96 11/30/18 20:30 11/30/18 20:30 11/30/18 20:30 11/30/18 20:30 11/30/18 20:30 - Medications Medications: Current Medications Aspirin (Aspirin Chewable) 81 mg PO DAILY [facility] Last Admin: 11/30/18 08:22 Dose: 81 mg Atorvastatin Calcium (Lipitor) 40 mg PO HS [facility] Last Admin: 11/30/18 21:08 Dose: 40 mg Enoxaparin Sodium (Lovenox) 40 mg SC DAILY [facility]; Protocol Last Admin: 11/30/18 08:20 Dose: 40 mg Folic Acid (Folic Acid) 1 mg PO DAILY [facility] Last Admin: 11/30/18 08:21 Dose: 1 mg Insulin Human Lispro (Humalog) 0 units SC [facility]; Protocol Last Admin: 11/30/18 21:09 Dose: Not Given Lisinopril (Zestril) 10 mg PO DAILY [facility] Last Admin: 11/30/18 08:22 Dose: 10 mg Metformin HCl (Glucophage) 1,000 mg PO BIDWM [facility] Pantoprazole Sodium (Protonix Ec Tab) 40 mg PO DAILY [facility] Last Admin: 11/30/18 08:22 Dose: 40 mg Thiamine HCl (Vitamin B1 Tab) 100 mg PO DAILY [facility] Last Admin: 11/30/18 08:21 Dose: 100 mg - Labs Labs: 11/28/18 05:35 11/28/18 05:35 Assessment and Plan (1) CVA (cerebral vascular accident) Status: Acute (2) Hemianopia of right eye Status: Acute (3) Diabetes mellitus Status: Acute (4) Hypertension Status: Acute (5) Chronic alcohol abuse Status: Acute
[2018-12-01] MEDS: Insulin Lispro (humaLOG) 100 Units/ml Inj SC SCH ×4 (06:29→21:02)
[2018-12-01 06:34] LABS: HEMOGLOBIN 12.4 g/dL (12.0-18.0); MEAN CELL VOLUME 82.5 fl (80.0-94.0); MEAN CORPUSCULAR HEMOGLOBIN 28.5 pg (27.0-31.0); MEAN CORPUSCULAR HGB CONC 34.5 g/dL (33.0-37.0); RBC 4.36 Mil/uL (4.40-5.90); RED CELL DISTRIBUTION WIDTH 12.8 % (11.5-14.5)
[2018-12-01 06:44] LABS: BLOOD UREA NITROGEN 22 mg/dl (9-20); CALCIUM 8.9 mg/dL (8.4-10.2); GFR NON-AFRICAN AMERICAN > 60
[2018-12-01] MEDS: Enoxaparin 40 mg Syringe SC SCH (08:08)
[2018-12-01] MEDS: Pantoprazole 40 mg EC Tab PO SCH (08:09)
--- NOTE | 2018-12-01 16:21 | CP.PCM.PN ---
Subjective - Date & Time of Evaluation Date of Evaluation: 12/01/18 Objective - Vital Signs/Intake and Output Vital Signs (last 24 hours): Temp Pulse Resp BP Pulse Ox 97.9 F 73 18 138/65 95 12/01/18 09:31 12/01/18 09:31 12/01/18 09:31 12/01/18 09:31 12/01/18 09:31 - Medications Medications: Current Medications Aspirin (Aspirin Chewable) 81 mg PO DAILY [facility] Last Admin: 12/01/18 08:08 Dose: 81 mg Atorvastatin Calcium (Lipitor) 40 mg PO HS [facility] Last Admin: 11/30/18 21:08 Dose: 40 mg Enoxaparin Sodium (Lovenox) 40 mg SC DAILY [facility]; Protocol Last Admin: 12/01/18 08:08 Dose: 40 mg Folic Acid (Folic Acid) 1 mg PO DAILY [facility] Last Admin: 12/01/18 08:09 Dose: 1 mg Insulin Human Lispro (Humalog) 0 units SC [facility]; Protocol Last Admin: 12/01/18 12:09 Dose: 1 unit Lisinopril (Zestril) 10 mg PO DAILY [facility] Last Admin: 12/01/18 08:08 Dose: 10 mg Metformin HCl (Glucophage) 1,000 mg PO BIDWM [facility] Last Admin: 12/01/18 08:08 Dose: 1,000 mg Pantoprazole Sodium (Protonix Ec Tab) 40 mg PO DAILY [facility] Last Admin: 12/01/18 08:09 Dose: 40 mg Thiamine HCl (Vitamin B1 Tab) 100 mg PO DAILY [facility] Last Admin: 12/01/18 08:09 Dose: 100 mg - Labs Labs: 12/01/18 05:20 12/01/18 05:20 Assessment and Plan (1) CVA (cerebral vascular accident) Status: Acute (2) Hemianopia of right eye Status: Acute (3) Diabetes mellitus Status: Acute (4) Hypertension Status: Acute (5) Chronic alcohol abuse Status: Acute
[2018-12-02] MEDS: Insulin Lispro (humaLOG) 100 Units/ml Inj SC SCH ×4 (06:39→21:07)
[2018-12-02] MEDS: Enoxaparin 40 mg Syringe SC SCH (08:12)
[2018-12-02] MEDS: Pantoprazole 40 mg EC Tab PO SCH (08:13)
--- NOTE | 2018-12-03 04:28 | CP.PCM.PN ---
Subjective - Date & Time of Evaluation Date of Evaluation: 12/02/18 Objective - Vital Signs/Intake and Output Vital Signs (last 24 hours): Temp Pulse Resp BP Pulse Ox 97.7 F 68 20 130/62 98 12/02/18 20:00 12/02/18 20:00 12/02/18 20:00 12/02/18 20:00 12/02/18 20:00 - Medications Medications: Current Medications Aspirin (Aspirin Chewable) 81 mg PO DAILY [facility] Last Admin: 12/02/18 08:14 Dose: 81 mg Atorvastatin Calcium (Lipitor) 40 mg PO HS [facility] Last Admin: 12/02/18 21:07 Dose: 40 mg Enoxaparin Sodium (Lovenox) 40 mg SC DAILY [facility]; Protocol Last Admin: 12/02/18 08:12 Dose: 40 mg Folic Acid (Folic Acid) 1 mg PO DAILY [facility] Last Admin: 12/02/18 08:13 Dose: 1 mg Insulin Human Lispro (Humalog) 0 units SC [facility]; Protocol Last Admin: 12/02/18 21:07 Dose: Not Given Lisinopril (Zestril) 10 mg PO DAILY [facility] Last Admin: 12/02/18 08:13 Dose: 10 mg Metformin HCl (Glucophage) 1,000 mg PO BIDWM [facility] Last Admin: 12/02/18 16:57 Dose: 1,000 mg Pantoprazole Sodium (Protonix Ec Tab) 40 mg PO DAILY [facility] Last Admin: 12/02/18 08:13 Dose: 40 mg Thiamine HCl (Vitamin B1 Tab) 100 mg PO DAILY [facility] Last Admin: 12/02/18 08:13 Dose: 100 mg - Labs Labs: 12/01/18 05:20 12/01/18 05:20 Assessment and Plan (1) CVA (cerebral vascular accident) Status: Acute (2) Hemianopia of right eye Status: Acute (3) Diabetes mellitus Status: Acute (4) Hypertension Status: Acute (5) Chronic alcohol abuse Status: Acute
[2018-12-03] MEDS: Insulin Lispro (humaLOG) 100 Units/ml Inj SC SCH ×4 (06:38→21:10)
[2018-12-03] MEDS: Enoxaparin 40 mg Syringe SC SCH (08:41)
[2018-12-03] MEDS: Pantoprazole 40 mg EC Tab PO SCH (08:43)
--- NOTE | 2018-12-03 09:35 | CP.PCM.PN ---
Subjective - Date & Time of Evaluation Date of Evaluation: 12/03/18 Time of Evaluation: 09:33 - Subjective Subjective: Dr Rae PMR coverage on Felice Boland, born 1955 who has been admitted to [facility] following an acute CVA. + unsteady gait good neurological return. PMH of HTN, DM Objective - Vital Signs/Intake and Output Vital Signs (last 24 hours): Temp Pulse Resp BP Pulse Ox 97.9 F 63 20 128/61 97 12/03/18 07:45 12/03/18 08:42 12/03/18 07:45 12/03/18 08:42 12/03/18 07:45 - Medications Medications: Current Medications Aspirin (Aspirin Chewable) 81 mg PO DAILY [facility] Last Admin: 12/03/18 08:43 Dose: 81 mg Atorvastatin Calcium (Lipitor) 40 mg PO HS [facility] Last Admin: 12/02/18 21:07 Dose: 40 mg Enoxaparin Sodium (Lovenox) 40 mg SC DAILY [facility]; Protocol Last Admin: 12/03/18 08:41 Dose: 40 mg Folic Acid (Folic Acid) 1 mg PO DAILY [facility] Last Admin: 12/03/18 08:43 Dose: 1 mg Insulin Human Lispro (Humalog) 0 units SC [facility]; Protocol Last Admin: 12/03/18 06:38 Dose: Not Given Lisinopril (Zestril) 10 mg PO DAILY [facility] Last Admin: 12/03/18 08:42 Dose: 10 mg Metformin HCl (Glucophage) 1,000 mg PO BIDWM [facility] Last Admin: 12/03/18 08:42 Dose: 1,000 mg Pantoprazole Sodium (Protonix Ec Tab) 40 mg PO DAILY [facility] Last Admin: 12/03/18 08:43 Dose: 40 mg Thiamine HCl (Vitamin B1 Tab) 100 mg PO DAILY [facility] Last Admin: 12/03/18 08:42 Dose: 100 mg - Labs Labs: 12/01/18 05:20 12/01/18 05:20 - Constitutional Appears: Non-toxic, No Acute Distress - Head Exam Head Exam: ATRAUMATIC, NORMAL INSPECTION, NORMOCEPHALIC - ENT Exam ENT Exam: Mucous Membranes Moist - Neck Exam Neck Exam: absent: Lymphadenopathy - Respiratory Exam Respiratory Exam: NORMAL BREATHING PATTERN - Cardiovascular Exam Cardiovascular Exam: REGULAR RHYTHM (1/6 TANK) - GI/Abdominal Exam GI & Abdominal Exam: absent: Guarding, Rigid - Extremities Exam Extremities Exam: absent: Calf Tenderness - Neurological Exam Neurological Exam: Alert, Awake, Oriented x3 Neuro motor strength exam: Left Upper Extremity: 5, Right Upper Extremity: 5, Left Lower Extremity: 5, Right Lower Extremity: 5 - Psychiatric Exam Psychiatric exam: Normal Affect, Normal Mood - Skin Skin Exam: Warm Assessment and Plan - Assessment and Plan (Free Text) Assessment: PT/OT to continue to help increase functional independence Team conference for d/c planning Pain: controlled Vascular: no evidence of DVT GI: No evidence of constipation or diarrhea Patient continues to be an excellent acute rehabilitation candidate and will have continued focused PT, OT and recreational therapy to help facilitate a safe and appropriate d/c plan
--- NOTE | 2018-12-03 14:31 | CP.PCM.PN ---
Subjective - Date & Time of Evaluation Date of Evaluation: 12/03/18 Objective - Vital Signs/Intake and Output Vital Signs (last 24 hours): Temp Pulse Resp BP Pulse Ox 97.9 F 63 20 128/61 97 12/03/18 07:45 12/03/18 08:42 12/03/18 07:45 12/03/18 08:42 12/03/18 07:45 - Medications Medications: Current Medications Aspirin (Aspirin Chewable) 81 mg PO DAILY [facility] Last Admin: 12/03/18 08:43 Dose: 81 mg Atorvastatin Calcium (Lipitor) 40 mg PO HS [facility] Last Admin: 12/02/18 21:07 Dose: 40 mg Enoxaparin Sodium (Lovenox) 40 mg SC DAILY [facility]; Protocol Last Admin: 12/03/18 08:41 Dose: 40 mg Folic Acid (Folic Acid) 1 mg PO DAILY [facility] Last Admin: 12/03/18 08:43 Dose: 1 mg Insulin Human Lispro (Humalog) 0 units SC [facility]; Protocol Last Admin: 12/03/18 12:13 Dose: 2 unit Lisinopril (Zestril) 10 mg PO DAILY [facility] Last Admin: 12/03/18 08:42 Dose: 10 mg Metformin HCl (Glucophage) 1,000 mg PO BIDWM [facility] Last Admin: 12/03/18 08:42 Dose: 1,000 mg Pantoprazole Sodium (Protonix Ec Tab) 40 mg PO DAILY [facility] Last Admin: 12/03/18 08:43 Dose: 40 mg Thiamine HCl (Vitamin B1 Tab) 100 mg PO DAILY [facility] Last Admin: 12/03/18 08:42 Dose: 100 mg - Labs Labs: 12/01/18 05:20 12/01/18 05:20 Assessment and Plan (1) CVA (cerebral vascular accident) Status: Acute (2) Hemianopia of right eye Status: Acute (3) Diabetes mellitus Status: Acute (4) Hypertension Status: Acute (5) Chronic alcohol abuse Status: Acute
[2018-12-04 06:31] LABS: HEMOGLOBIN 12.2 g/dL (12.0-18.0); MEAN CORPUSCULAR HEMOGLOBIN 28.6 pg (27.0-31.0); MEAN CORPUSCULAR HGB CONC 34.9 g/dL (33.0-37.0); RBC 4.28 Mil/uL (4.40-5.90); RED CELL DISTRIBUTION WIDTH 12.6 % (11.5-14.5); WHITE BLOOD COUNT 6.9 K/uL (4.8-10.8)
[2018-12-04] MEDS: Insulin Lispro (humaLOG) 100 Units/ml Inj SC SCH ×4 (06:44→21:12)
[2018-12-04 06:51] LABS: BLOOD UREA NITROGEN 14 mg/dl (9-20); CALCIUM 9.2 mg/dL (8.4-10.2); GFR NON-AFRICAN AMERICAN > 60
[2018-12-04] MEDS: Enoxaparin 40 mg Syringe SC SCH (08:07)
[2018-12-04] MEDS: Pantoprazole 40 mg EC Tab PO SCH (09:27)
--- NOTE | 2018-12-04 16:24 | CP.PCM.PN ---
Subjective - Date & Time of Evaluation Date of Evaluation: 12/04/18 Time of Evaluation: 16:21 - Subjective Subjective: Dr Rae PMR coverage on Felice Boland, born 1955 who has been admitted to [facility] following an acute CVA. + unsteady gait good neurological return. PMH of HTN, DM Continues to make progress and set for d/c home with outpatient therapy tomorrow Objective - Vital Signs/Intake and Output Vital Signs (last 24 hours): Temp Pulse Resp BP Pulse Ox 98.2 F 71 18 128/54 L 96 12/04/18 08:52 12/04/18 08:52 12/04/18 08:52 12/04/18 08:52 12/04/18 08:52 - Medications Medications: Current Medications Aspirin (Aspirin Chewable) 81 mg PO DAILY [facility] Last Admin: 12/04/18 08:08 Dose: 81 mg Atorvastatin Calcium (Lipitor) 40 mg PO HS [facility] Last Admin: 12/03/18 21:13 Dose: 40 mg Enoxaparin Sodium (Lovenox) 40 mg SC DAILY [facility]; Protocol Last Admin: 12/04/18 08:07 Dose: 40 mg Folic Acid (Folic Acid) 1 mg PO DAILY [facility] Last Admin: 12/04/18 08:08 Dose: 1 mg Insulin Human Lispro (Humalog) 0 units SC [facility]; Protocol Last Admin: 12/04/18 12:19 Dose: 1 unit Lisinopril (Zestril) 10 mg PO DAILY [facility] Last Admin: 12/04/18 08:07 Dose: 10 mg Metformin HCl (Glucophage) 1,000 mg PO BIDWM [facility] Last Admin: 12/04/18 08:08 Dose: 1,000 mg Pantoprazole Sodium (Protonix Ec Tab) 40 mg PO DAILY [facility] Last Admin: 12/04/18 09:27 Dose: 40 mg Thiamine HCl (Vitamin B1 Tab) 100 mg PO DAILY [facility] Last Admin: 12/04/18 08:08 Dose: 100 mg - Labs Labs: 12/04/18 05:35 12/04/18 05:35 - Constitutional Appears: Well, Non-toxic, No Acute Distress - Head Exam Head Exam: ATRAUMATIC, NORMAL INSPECTION, NORMOCEPHALIC - Eye Exam Eye Exam: EOMI - ENT Exam ENT Exam: Mucous Membranes Moist - Respiratory Exam Respiratory Exam: NORMAL BREATHING PATTERN. absent: Chest Wall Tenderness - Cardiovascular Exam Cardiovascular Exam: REGULAR RHYTHM - GI/Abdominal Exam GI & Abdominal Exam: Soft. absent: Distended - Extremities Exam Extremities Exam: absent: Calf Tenderness - Neurological Exam Neurological Exam: Alert Neuro motor strength exam: Left Upper Extremity: 5, Right Upper Extremity: 5, Left Lower Extremity: 5, Right Lower Extremity: 5 - Psychiatric Exam Psychiatric exam: Normal Affect, Normal Mood - Skin Skin Exam: Warm Assessment and Plan - Assessment and Plan (Free Text) Assessment: 63 year old mlae CVA with good neuro return PT/OT to continue to help increase functional independence Team conference has been done and d/c home 12/05/18 Pain: controlled Vascular: no evidence of DVT GI: No evidence of constipation or diarrhea Patient continues to be an excellent acute rehabilitation candidate and has done very well and now set for d/c home will get outpatient PT,
[2018-12-05] MEDS: Insulin Lispro (humaLOG) 100 Units/ml Inj SC SCH ×3 (06:30→16:12)
[2018-12-05 08:11] VITALS: BP 129/61; PULSE 68; RESP 21; TEMP 98.1; O2SAT 97
[2018-12-05] MEDS: Pantoprazole 40 mg EC Tab PO SCH (08:32)
[2018-12-05] MEDS: Enoxaparin 40 mg Syringe SC SCH (08:33)
--- NOTE | 2018-12-05 18:14 | CP.PCM.PN ---
Subjective - Date & Time of Evaluation Date of Evaluation: 12/05/18 Time of Evaluation: 13:20 - Subjective Subjective: Patient seen in the room in good spirits set for d/c today denies sob/cp no focal strength deficit set for discharge Objective - Vital Signs/Intake and Output Vital Signs (last 24 hours): Temp Pulse Resp BP Pulse Ox 98.1 F 68 21 129/61 97 12/05/18 08:10 12/05/18 08:32 12/05/18 08:10 12/05/18 08:32 12/05/18 08:10 - Labs Labs: 12/04/18 05:35 12/04/18 05:35
--- NOTE | 2018-12-05 18:28 | CP.PCM.DIS ---
Provider - Provider Date of Admission: 11/21/18 19:28 Attending physician: Starr Mensah MD Consults: 11/21/18 22:15 Physiatry Consult Routine Comment: Consulting Provider: Niels Hedrick Consulting Physician: Niels Hedrick Reason for Consult: Acute Rehab.,DX. Acute CVA 11/22/18 01:23 Pharmacist Consult As Ordered Comment: Physician Instructions: Reason For Exam: Patient on Lovenox. 11/22/18 08:00 Case Management Referral Routine Comment: Physician Instructions: Reason For Exam: Reason for Referral: Discharge Planning Social Work Referral Routine Comment: discharge assistance Physician Instructions: Reason For Exam: Discharge planning ;Smoking Cessation referral Time Spent in preparation of Discharge (in minutes): 25 Diagnosis - Discharge Diagnosis (1) CVA (cerebral vascular accident) Status: Acute Priority: High (2) Hemianopia of right eye Status: Acute Priority: High (3) Diabetes mellitus Status: Acute Priority: Medium (4) Hypertension Status: Acute Priority: Low (5) Chronic alcohol abuse Status: Acute Priority: Low Hospital Course - Lab Results Lab Results: Most Recent Lab Values WBC 6.9 K/uL (4.8-10.8) 12/04/18 05:35 RBC 4.28 Mil/uL (4.40-5.90) L 12/04/18 05:35 Hgb 12.2 g/dL (12.0-18.0) 12/04/18 05:35 Hct 35.1 % (35.0-51.0) 12/04/18 05:35 MCV 82.0 fl (80.0-94.0) 12/04/18 05:35 MCH 28.6 pg (27.0-31.0) 12/04/18 05:35 MCHC 34.9 g/dL (33.0-37.0) 12/04/18 05:35 RDW 12.6 % (11.5-14.5) 12/04/18 05:35 Plt Count 189 K/uL (130-400) 12/04/18 05:35 Sodium 138 mmol/l (132-148) 12/04/18 05:35 Potassium 4.2 MMOL/L (3.6-5.0) 12/04/18 05:35 Chloride 103 mmol/L (98-107) 12/04/18 05:35 Carbon Dioxide 27 mmol/L (22-30) 12/04/18 05:35 Anion Gap 12 (10-20) 12/04/18 05:35 BUN 14 mg/dl (9-20) 12/04/18 05:35 Creatinine 0.8 mg/dl (0.8-1.5) 12/04/18 05:35 Est GFR ( Amer) > 60 12/04/18 05:35 Est GFR (Non-Af Amer) > 60 12/04/18 05:35 POC Glucose (mg/dL) 156 mg/dL (65-110) H 12/05/18 16:02 Random Glucose 115 mg/dL (75-110) H 12/04/18 05:35 Calcium 9.2 mg/dL (8.4-10.2) 12/04/18 05:35 Discharge Exam - Head Exam Head Exam: ATRAUMATIC, NORMAL INSPECTION, NORMOCEPHALIC Discharge Plan - Discharge Medications Prescriptions: Aspirin [Aspirin Chewable] 81 mg PO DAILY #30 chew Folic Acid 1 mg PO DAILY #30 tab MetFORMIN [glucoPHAGE] 1,000 mg PO BIDWM #60 tab Atorvastatin [Lipitor] 40 mg PO HS #30 tab Pantoprazole [Protonix EC Tab] 40 mg PO DAILY #30 ect Thiamine [Vitamin B1 Tab] 100 mg PO DAILY #30 tab Lisinopril [Zestril] 10 mg PO DAILY #30 tab - Follow Up Plan Condition: GOOD Disposition: HOME/ ROUTINE Instructions: Stroke (DC)
--- NOTE | 2018-12-05 18:28 | CP.PCM.PN ---
Subjective - Date & Time of Evaluation Date of Evaluation: 12/04/18 Objective - Vital Signs/Intake and Output Vital Signs (last 24 hours): Temp Pulse Resp BP Pulse Ox 98.1 F 68 21 129/61 97 12/05/18 08:10 12/05/18 08:32 12/05/18 08:10 12/05/18 08:32 12/05/18 08:10 - Labs Labs: 12/04/18 05:35 12/04/18 05:35 Assessment and Plan (1) CVA (cerebral vascular accident) Status: Acute (2) Hemianopia of right eye Status: Acute (3) Diabetes mellitus Status: Acute (4) Hypertension Status: Acute (5) Chronic alcohol abuse Status: Acute
== END 2018-12-05 17:10 | disposition home or self-care (01) | DRG 57 ==
PROVIDERS: ADMIT Internal Medicine; ATTEND Internal Medicine
DX: I69.398 Other sequelae of cerebral infarction (principal); Z51.89 Encounter for other specified aftercare; I10 Essential (primary) hypertension; E11.9 Type 2 diabetes mellitus without complications; H53.47 Heteronymous bilateral field defects; F10.10 Alcohol abuse, uncomplicated; R26.81 Unsteadiness on feet; F17.210 Nicotine dependence, cigarettes, uncomplicated